=== PATIENT | male | born 1940 | race Caucasian/White ===

== ENCOUNTER 2024-01-27 10:35 | Outpatient (CLI) | payer MEDICARE, SELFPAY ==
--- NOTE | 2024-01-27 11:08 | ECG_ITS ---
SEE SCANNED COPY FOR CONFIRMED REPORT MTDD
[2024-01-27 11:29] LABS: Appearance Urine Clear (Clear); Bilirubin Urine Negative (Negative); Blood Urine Negative (Negative); Color Urine Yellow (Yellow); Glucose Urine UA Negative (Negative); Ketones Urine Negative (Negative); Leukocyte Esterase Ur Negative LEU/UL (Negative); Nitrate Urine Negative (Negative); Protein Urine Negative (Negative); Specific Grav Ur 1.019 (1.001-1.035); pH Urine 6.5 (5.0-9.0)
[2024-01-27 11:30] LABS: Basophils Absolute Auto 0.1 K/mm3 (0.0-0.1); Basophils Percent Auto 0.9 % (0.2-1.2); Eosinophils Absolute Auto 0.1 K/mm3 (0-0.3); Eosinophils Percent Auto 2.1 % (0-4.4); Hemoglobin 13.9 g/dL (14.0-18.0); Immature Granulocyte Absolute 0.01 K/mm3 (0.00-0.031); Immature Granulocyte Percent A 0.1 % (0-0.5); Lymphocytes Absolute Auto 1.19 K/mm3 (0.9-3.2); Lymphocytes Percent Auto 17.6 % (18.3-44.2); Mean Corpuscular HGB Conc 33.1 g/dl (32-36); Mean Corpuscular Hemoglobin 29.7 pg (26-34); Mean Corpuscular Volume 89.7 fl (80-100); Mean Platelet Volume 9.6 fl (7.4-10.4); Monocytes Absolute Auto 0.5 K/mm3 (0.1-0.6); Monocytes Percent Auto 7.7 % (2.6-8.5); Neutrophils Absolute Auto 4.9 K/mm3 (1.3-6.7); Neutrophils Percent Auto 71.6 % (45.5-73.1); Platelet Count Result 182 k/mm3 (150-375); Red Blood Count 4.68 M/mm3 (4.6-6.20); Red Cell Distribution Width 13.8 % (11.5-14.5); White Blood Count 6.8 K/mm3 (4.5-10.0)
[2024-01-27 11:48] LABS: Anion Gap 4 mmol/L (4-12); Blood Urea Nitrogen 17 mg/dL (9-20); Calcium 9.1 mg/dL (8.4-10.2); Carbon Dioxide 31 mmol/L (22-30); Chloride 104 mmol/L (98-107); Estimated Glomerular Filt Rate > 60; Glucose 88 mg/dL (65-110); Potassium 4.2 mmol/L (3.4-5.0); Sodium 139 mmol/L (137-145)
[2024-01-27 12:07] LABS: Add Urine Microscopic? NO
== END 2024-01-27 10:36 | disposition home or self-care (01) ==
PROVIDERS: PCP Internal Medicine; Visit Provider Nurse Practitioner Family
DX: M16.12 Unilateral primary osteoarthritis, left hip (principal); R53.83 Other fatigue; I10 Essential (primary) hypertension; R94.31 Abnormal electrocardiogram [ECG] [EKG]
CPT/HCPCS: 36415; 80048; 81003; 85025; 93005

== ENCOUNTER 2024-02-14 13:31 | Outpatient (CLI) | payer MEDICARE, SELFPAY ==
[2024-02-14 15:40] LABS: INR 1.1; Partial Thromboplastin Time 38.8 Seconds (22.3-36.8); Prothrombin Time 14.7 Seconds (11.1-14.7); Urine Cotinine NEGATIVE
[2024-02-14 15:53] LABS: Albumin Level 4.3 g/dL (3.5-5.1)
[2024-02-14 16:42] LABS: MRSA (PCR) NOT DETECTED (NOT DETECTE)
[2024-02-14 18:57] LABS: Hemoglobin A1C 5.3 % (<5.7)
== END 2024-02-14 13:32 | disposition home or self-care (01) ==
LOC: ANHSURGERY 13:38
PROVIDERS: PCP Internal Medicine; Visit Provider Orthopaedic Surgery
DX: M16.12 Unilateral primary osteoarthritis, left hip (principal); Z01.818 Encounter for other preprocedural examination
CPT/HCPCS: 80307; 82040; 83036; 85610; 85730; 87641

== ENCOUNTER 2024-02-21 07:11 | Outpatient (CLI) | payer MEDICARE, SELFPAY ==
--- NOTE | 2024-02-21 | EST_ITS ---
Patient Info Name: Issac Ricketts Age: 83 years : 1940 Gender: Male Ht: 72 in Wt: 172 lbs BSA: 1.99 m2 HR: 58 bpm BP: 155 / 87 mmHg Heart Rhythm: Sinus Rhythm Exam Date: 02/21/2024 8:15 AM Exam Location: Echo Lab Patient Status: Outpatient Admit Date: 02/21/2024 Staff Ordering Physician: Ezequiel, Girish Guido MD Attending Provider: Ezequiel, Girish Guido MD Exercise Technologist: Romana Zamarripa CT Exercise Physician: Rolando Pérez DO Exam Type: CA stress ofelia w NM Study Info Indications Z01.810 - Encounter for preprocedural cardiovascular examination A regadenoson stress test was performed. Summary 1. 1. Negative lexiscan stress test for ischemic ST changes by ECG criteria. 2. 2. Baseline hypertension. 3. 3. Nuclear scan to follow and will be reported separately. Please correlate with it. 4. 4. Patient informed of the above results. Protocol: Lexiscan Stress ECG Details Stage: REST Duration (min): 1 min : 56 sec HR (bpm): 58 SBP (mmHg): 155 DBP (mmHg): 87 Stage: REST Duration (min): 9 min : 23 sec HR (bpm): 63 SBP (mmHg): 155 DBP (mmHg): 87 Stage: STAGE 1 Duration (min): 0 min : 59 sec HR (bpm): 77 SBP (mmHg): 155 DBP (mmHg): 87 Stage: RECOVERY Duration (min): 1 min : 0 sec HR (bpm): 81 SBP (mmHg): 153 DBP (mmHg): 71 Stage: RECOVERY Duration (min): 2 min : 0 sec HR (bpm): 78 SBP (mmHg): 153 DBP (mmHg): 71 Stage: RECOVERY Duration (min): 3 min : 0 sec HR (bpm): 76 SBP (mmHg): 153 DBP (mmHg): 71 Stage: RECOVERY Duration (min): 3 min : 17 sec HR (bpm): 76 SBP (mmHg): 159 DBP (mmHg): 70 Rest HR: 63 bpm Peak HR: 84 bpm Rest Sys BP: 155 mmHg Peak Sys BP: 159 mmHg Max Pred HR: 139 bpm % Max Pred HR: 60 % Target HR: 118 bpm Max RPP: 13,356 bpm*mmHg Termination Reason: Completed protocol Cardiac Symptoms: Lightheadedness Total Time: 1 min : 0 sec Rest Gruber BP: 87 mmHg Peak Gruber BP: 70 mmHg Total Dose: 0.4 mg Resting ECG Sinus rhythm with supraventricular bigeminy. Stress ECG No ST changes. Arrhythmias None. Report Signatures
--- NOTE | ~2024-02-21 | NM_ITS ---
EXAMINATION: NM ofelia stress w perfusion DATE: 02/21/2024 09:10 INDICATION: Preoperative cardiac evaluation with known chronic artery atherosclerosis.. TECHNIQUE: Rest images were obtained following intravenous administration of 10.9 mCi Tc99m tetrofosm in (Myoview). The patient was infused intravenously with Lexiscan (Regadenoson). Then, 34.0 mCi Tc99m tetrofosmin (Myoview) was administered intravenously, and stress images were obtained. Data was piotr nstructed into short axis and horizontal and vertical long axis SPECT images. Gated SPECT images were also obtained. COMPARISON: None. FINDINGS: There is no definite reversible or fixed perfusion abnormality to suggest ischemia or infar ction. There is normal left ventricular chamber size, wall motion and ejection fraction. Left ventr icular ejection fraction measures 63%. IMPRESSION: 1. Normal myocardial perfusion during stress. 2. Left ventricular ejection fraction measuring 63%. Reviewed, dictated and finalized at location A.
== END 2024-02-21 07:12 | disposition home or self-care (01) ==
PROVIDERS: PCP Internal Medicine; Visit Provider Internal Medicine
DX: Z01.89 Encounter for other specified special examinations (principal); Z01.810 Encounter for preprocedural cardiovascular examination
CPT/HCPCS: 78452; 93017; A9502; J2785

== ENCOUNTER 2024-02-28 02:57 | Day surgery (SDC) | payer MEDICARE, SELFPAY ==
[2024-02-14 13:55] VITALS: BP 152/67; PULSE 60; RESP 16; TEMP 37.2; O2SAT 98; BMI 24.5
--- NOTE | 2024-02-14 14:17 | PC.NURSE ---
Report to the Outpatient Waiting Room, entrance under the green pavilion located off [facility], at time __8:30AM on date ___02/28/24____. Planned Procedure Time: _10:30AM . Time changes happen often and if your time is changed the preop area will call you the afternoon before. - You and your visitor will be asked to self-screen and do not enter if you have any COVID symptoms. - A mask is optional within the hospital at this time. Patients may have clear liquids (water, carbonated beverages, clear teas, apple juice) until 3 hours prior to surgery with a maximum of 20 ounces. - No food from midnight until time of surgery. Take the following medications with a SIP of water the morning of surgery: NONE DO NOT STOP ANY OF YOUR OTHER PRESCRIPTION MEDICATIONS PRIOR TO SURGERY ?EXCEPT THE FOLLOWING Medications to discontinue per physician ___HOLD MELOXICAM, IBUPROFEN, ASPIRIN AND ALL VITAMINS/SUPPLEMENTS 7 DAYS PRE-OP PER DR GÓMEZ Date to take last dose____02/20/24 Please no make-up, nail namibian, hairspray, perfume, deodorant, or body powder the day of surgery. No jewelry (including any body piercings) or valuables the day of surgery, leave them at home. Please take a shower or bath the night before, or the morning of, surgery with an antibacterial soap. Wear comfortable, loose fitting clothing. - Jewelry must be removed prior to entering the operating room. Rings and piercings that are not removed may be cut off. - The hospital will not accept responsibility for valuables. - Please leave all valuables, including medications, at home the day of surgery. If you are going home after surgery, a licensed bobtail driver must drive you home. - NO public transportation without another adult if you receive anesthesia. - We recommend that an adult stay with you for 24 hours following discharge. - We also recommend that you do not drive, make important decision, drink alcoholic beverages, or take any drugs that were not prescribed by your health care provider for at least 24 hours after your discharge time. Follow any additional instructions given to you from your surgeon. If you or anyone in your household have experienced Covid symptoms in the past week, please notify your surgeon or the nurse liaison at the phone number below for possible testing. Telephone instructions given to ____PATIENT and asked if any additional questions and then verbalized understanding. Patient advised to call surgeon office or pre surgery nurse liaison [phone] if any additional questions.
[2024-02-28] VITALS (10 sets, daily range): BP systolic 103–127; BP diastolic 44–54; PULSE 62–74; RESP 13–20; TEMP 36.1–36.5; O2SAT 99–100
--- NOTE | ~2024-02-28 | XR_ITS ---
EXAMINATION: XR hip LT min 2V DATE: 02/28/2024 13:59 INDICATION: Total left hip arthroplasty. Postop. TECHNIQUE: 2 views of left hip were obtained. COMPARISON: Left hip radiograph 01/27/2024 FINDINGS: There is a total left hip arthroplasty in near-anatomic alignment. No fracture. There is ga s in the soft tissues, consistent with recent surgery. IMPRESSION: 1. Total left hip arthroplasty in near-anatomic alignment. Reviewed, dictated and finalized at location A.
--- NOTE | 2024-02-28 07:12 | WPDHPUPDATE1 ---
History and Physical Update Update Date/Time: 02/28/24 07:12 History and Physical has been reviewed, including an updated exam of the patient. There are NO changes in the patient's condition. Risks, benefits, and alternatives have been discussed and questions answered. Patient agrees to proceed with procedure.
[2024-02-28] MEDS: ACETAMINOPHEN 500 MG TABLET 1000 MG PO (08:45)
[2024-02-28] MEDS: TRANEXAMIC ACID 1,000MG/ISO100 1,000 MG/100 ML BAG 200 MG IVPB (08:50)
[2024-02-28] MEDS: LACTATED RINGERS 1,000 ML 30 ML IV CONT ×2 (08:50→13:46)
[2024-02-28] MEDS: ceFAZolin 2 GM/D5W 50 ML 2 GM/50 ML BAG IVPB ×2 (11:00→17:59)
--- NOTE | 2024-02-28 11:02 | P.PNAN_ITS ---
Anes - Initial Pre Proc Eval Procedure: Operation Date: 02/28/24 10:30 Proposed Procedures p Left Total Hip Arthroplasty - Eric Medrano MD Date/Time: 02/28/24 11:02 Surgeon: Eric Medrano MD Pre Op Diagnosis: Lt Hip DJD Patient Data Age: 83 Gender: M Height: 1.8 m Weight: 77.7 kg Last Vital Signs Temp 37.2 C 02/14/24 13:55 Pulse 60 02/14/24 13:55 Resp 16 02/14/24 13:55 BP 152/67 H 02/14/24 13:55 Pulse Ox 98 02/14/24 13:55 O2 Del Method Room Air 02/14/24 13:55 Allergies Allergy/AdvReac Type Severity Reaction Status Date / Time No Known Allergies Allergy Mild Verified 02/28/24 09:17 Home Medications Medication Instructions Recorded Confirmed Type aspirin 81 mg capsule 81 mg PO DAILY 01/27/24 02/28/24 History meloxicam 7.5 mg tablet 7.5 mg PO QAM 01/27/24 02/28/24 History acetaminophen 500 mg capsule 500 mg PO Q6H PRN Pain 02/14/24 02/27/24 History cholecalciferol (vitamin D3) 50 50 mcg PO DAILY 02/14/24 02/28/24 History mcg (2,000 unit) capsule ibuprofen 200 mg capsule 200 mg PO HS PRN Pain 02/14/24 02/28/24 History multivitamin 1 tablet PO DAILY 02/14/24 02/28/24 History omega-3s 300 fg-iwk-pub-other 1 cap PO DAILY 02/14/24 02/28/24 History xutot6q-[id number] oil 1,000 mg capsule ([place]-3 Fish Oil) Laboratory Tests 02/28/24 08:47 Blood Type A Positive Antibody Screen Negative Patient hx anesthesia problems: none Family hx anesthesia problems: none Results Review: All pre-operative results and documents have been reviewed as part of the pre- operative evaluation. [facility]LY [facility] Surgical History Surgical History History of appendectomy History of carpal tunnel release Bilateral wrists- 2016 Hx of hernia repair Social History Social History Social History: caffeine use Smoking status: Never smoker Alcohol intake: current Alcohol use details: 2/month Living arrangements: with family Additional living arrangements comments: S.O. Occupation/Education: retired Gender identity (if verbalized by the patient): Male Spiritual care concerns: No Anes - Eval Final PreProcedure Day of Procedure 02/28/24 11:02 Patient weight: normal Heart: regular rate and rhythm Lungs: clear to auscultation Airway: Mallampati scale class II Neurological: alert and oriented Last oral intake: >/= 8 hours ASA classification: II Emergent: no Anesthetic plan: proceed Anesthesia type and monitoring: general ETT and standard monitoring Results Review: All pre-operative results and documents have been reviewed as part of the pre- operative evaluation. Informed Consent: The patient's anesthetic plan and its attendant risks and benefits were discussed with the patient/family/POA. Questions were solicited and answers provided to the satisfaction of the patient/family/POA.
[2024-02-28] MEDS: SODIUM CHLORIDE 0.9% IV 37.7 ML, MORPHINE SULFATE INJ (*CRX) 2 MG, ROPivacaine HCL 1% 2... INFILTRATE (11:45)
[2024-02-28] MEDS: TRANEXAMIC ACID 1,000 MG/10 ML AMPUL 1000 MG IV PUSH (11:51)
--- NOTE | 2024-02-28 13:49 | W.PM.PROC2 ---
Procedure Note - Detailed Date of Procedure 02/28/24 Pre-op Diagnosis Lt Hip DJD Post-op Diagnosis Same Procedure Performed L [facility] Surgeon Eric Medrano MD Anesthesia General Description of Procedure THE PATIENT WAS TAKEN TO THE OPERATING ROOM IN STABLE CONDITION AND WAS PLACED IN THE LATERAL DECUBITUS AND THE LEFT LOWER EXTREMITY WAS PREPPED AND DRAPED IN THE STERILE FASHION. INCISION WAS MADE IN THE POSTERIOR LATERAL SIDE OF THE HIP, DOWN TO THE FASCIA LAYER. THE FASCIA WAS INCISED. THE HIP WAS EXPOSED. THE SHORT EXTERNAL ROTATORS WERE EXPOSED. THE SCIATIC NERVE WAS IDENTIFIED. INCISION WAS MADE THROUGH THE SHORT EXTERNAL ROTATORS AND THE CAPSULE OF THE HIP JOINT. THE HIP WAS DISLOCATED. AN OSTEOTOMY WAS MADE TO THE FEMORAL NECK ABOUT 1 CM PROXIMAL TO THE LESSER TROCHANTER. THE ACETABULUM WAS EXPOSED. THERE WAS SEVERE DJD SEEN. BEGINNING WITH A 44 REAMER THE ACETABULUM WAS REAMED TO 53 MM. A 53 MM TRIAL WAS PLACED IN 35 DEG OF ABDUCTION AND ANTEVERSION WAS IN ALIGNMENT WITH THE TRANS ACETABULAR LIGAMENT. THE FIT WAS EXCELLENT. THE TRIAL WAS REMOVED. A 54 MM BIOMET G7 COMPONENT WAS THEN TAPPED IN TO PLACE IN 35 DEG OF ABDUCTION AND ANTEVERSION IN ALIGNMENT WITH THE TRANSVERSE ACETABULAR LIGAMENT. THE FIT WAS EXCELLENT. THE ACETABULAR LINER WAS PLACED AND CHECKED FOR STABILITY. NEXT THE FEMUR WAS PREPARED WITH INITIAL CANAL FINDER THEN SEQUENTIAL BROACHING WITH A TAPERLOC HIP SYSTEM, UNTIL A 14 BROACH FIT WELL IN 15 OF ANTEVERSION. A +6 HIGH OFFSET NECK WITH 36 MM HEAD TRIAL WAS PLACED. THE SHUCK TEST WAS EXCELLENT AND THE STABILITY IN FLEXION AND ROTATION WAS EXCELLENT. LEG LENGTHS WERE GROSSLY EQUAL. TRIALS WERE REMOVED. A BIOMET TAPERLOC 9 STEM WAS PLACED WITH A HIGH OFFSET NECK THE FIT WAS EXCELLENT IN 15 DEG OF ANTEVERSION. A +6 CERAMIC 36 MM FEMORAL CERAMIC HEAD WAS PLACED. THE HIP WAS TRIALED AND THE STABILITY WAS EXCELLENT WERE THE LEG LENGTHS AND THE SHUCK TEST. THE WOUND WAS IRRIGATED WITH STERILE BETADINE AND WATER FOR 3 MIN. THEN WASHED AGAIN. THE CAPSULE AND THE EXTERNAL ROTATORS WERE APPROXIMATED WITH NUMBER 1 VICRYL. THE FASCIA WITH No 2 QUIL AND THE SUB CUTANEOUS LAYER WITH 2-0 ABSORBABLE SUTURE WITH A RUNNING 3-0 SUBCUTICULAR LAYER WELL. DERMABOND WAS PLACED AND STERILE DRESSING WAS APPLIED. PATIENT WAS PLACED BACK ON TO THE SUPINE POSITION AND WAS EXTUBATED Estimated Blood Loss 100 Complications No immediate complications Condition Stable Disposition PACU
[2024-02-28] MEDS: SODIUM CHLORIDE 0.9% IV 1,000 ML 125 ML IV CONT (15:53)
[2024-02-28] MEDS: ONDANSETRON INJ 4 MG/2 ML VIAL IV PUSH (15:53)
--- NOTE | 2024-02-28 16:02 | ADMGEN ---
This patient, Issac Ricketts, was admitted to 3 [facility] Surg Room 314-02. Patient/family oriented to hospital policies and general routines including ID bracelet, bed and alarms, visiting hours, pain management, procedures, bathroom and other care routines, personal items, smoking policy, room service/diet, and visiting hours. Information on how to activate the Rapid Response Team has been discussed. Patient/Family are encouraged to report perceived risks to care and to ask questions if they do not understand what they are told or what they should do. Report from Cathy in PACU
[2024-02-28] MEDS: SENNA/DOCUSATE SODIUM TABLET 2 TAB PO (16:56)
[2024-02-28] MEDS: ACETAMINOPHEN 500 MG TABLET PO (16:59)
[2024-02-28] MEDS: FAMOTIDINE 20 MG TABLET PO (20:41)
[2024-02-29] MEDS: ONDANSETRON INJ 4 MG/2 ML VIAL IV PUSH (00:34)
[2024-02-29] MEDS: SODIUM CHLORIDE 0.9% IV 1,000 ML 125 ML IV CONT (00:34)
[2024-02-29] MEDS: ceFAZolin 2 GM/D5W 50 ML 2 GM/50 ML BAG IVPB ×2 (03:15→10:45)
[2024-02-29 03:27] VITALS: BP 130/58; PULSE 69; RESP 18; TEMP 36.5; O2SAT 100
[2024-02-29 05:23] LABS: Basophils Percent Auto 0.4 % (0.2-1.2); Hematocrit 29.7 % (42.0-52.0); Hemoglobin 9.9 g/dL (14.0-18.0); Immature Granulocyte Absolute 0.04 K/mm3 (0.00-0.031); Immature Granulocyte Percent A 0.4 % (0-0.5); Lymphocytes Absolute Auto 0.83 K/mm3 (0.9-3.2); Lymphocytes Percent Auto 8.1 % (18.3-44.2); Mean Corpuscular HGB Conc 33.3 g/dl (32-36); Mean Corpuscular Hemoglobin 29.8 pg (26-34); Mean Corpuscular Volume 89.5 fl (80-100); Mean Platelet Volume 9.9 fl (7.4-10.4); Monocytes Absolute Auto 0.9 K/mm3 (0.1-0.6); Monocytes Percent Auto 8.3 % (2.6-8.5); Neutrophils Absolute Auto 8.5 K/mm3 (1.3-6.7); Neutrophils Percent Auto 82.8 % (45.5-73.1); Platelet Count Result 123 k/mm3 (150-375); Red Blood Count 3.32 M/mm3 (4.6-6.20); Red Cell Distribution Width 13.5 % (11.5-14.5); White Blood Count 10.3 K/mm3 (4.5-10.0)
[2024-02-29 05:37] LABS: Anion Gap 4 mmol/L (4-12); Blood Urea Nitrogen 15 mg/dL (9-20); Calcium 7.9 mg/dL (8.4-10.2); Carbon Dioxide 27 mmol/L (22-30); Chloride 104 mmol/L (98-107); Estimated CRCL calculation 67 ml/min; Estimated Glomerular Filt Rate > 60; Glucose 133 mg/dL (65-110); Potassium 3.9 mmol/L (3.4-5.0); Sodium 135 mmol/L (137-145)
[2024-02-29 07:27] VITALS: BP 112/47; PULSE 63; RESP 18; TEMP 36.1; O2SAT 100
[2024-02-29 08:00] VITALS: O2SAT 100
[2024-02-29] MEDS: SENNA/DOCUSATE SODIUM TABLET 2 TAB PO (08:42)
[2024-02-29] MEDS: FAMOTIDINE 20 MG TABLET PO (08:42)
[2024-02-29] MEDS: MULTIVITAMINS THERAPEUTIC TAB (*BKC) 1 TABLET PO (08:42)
[2024-02-29] MEDS: polyethylene glycoL 3350 17 GM POWD.PACK PO (08:42)
[2024-02-29] MEDS: CHOLECALCIFEROL 1,000 UNITS TABLET 2000 UNITS PO (08:42)
[2024-02-29] MEDS: ASPIRIN 81 MG ENTERIC TABLET PO (08:42)
--- NOTE | 2024-02-29 11:05 | PM.PNORT ---
Progress Note: A&P Assessment and Plan (1) Degenerative joint disease of left hip: Qualifiers: Osteoarthritis type: primary Qualified Code(s): M16.12 - Unilateral primary osteoarthritis, left hip Code(s): M16.12 - Unilateral primary osteoarthritis, left hip Status: Acute Assessment and Plan: POD 1 DOING WELL WITH GOOD PROGRESS WITH PT. OK TO DC HOME F/U IN 3 WEEKS Subjective Subjective Date/Time Seen: 02/29/24 11:05 Interval history: POD 1 DOING WELL. NO CALF PAIN Exam Extrem: Other: VSS AFEBRILE DRESSING DRY NV INTACT NEG HOMANS SIGN CALF AND THIGH SOFT NON TENDER Objective Data Vital Signs Vital Signs: Vital Signs - 24 hr 02/28/24 13:46 02/28/24 14:00 02/28/24 14:15 Temperature 36.1 C L Pulse Rate 73 67 65 Respiratory Rate 13 14 18 Blood Pressure 122/49 L 110/50 L 112/53 L Pulse Oximetry 100 100 100 Oxygen Delivery Simple Face Mask Room Air Room Air Oxygen Flow Rate 8 02/28/24 14:30 02/28/24 14:45 02/28/24 15:15 Temperature 36.2 C L 36.3 C L Pulse Rate 71 63 65 Respiratory Rate 20 15 16 Blood Pressure 103/49 L 108/44 L 118/54 L Pulse Oximetry 100 99 99 Oxygen Delivery Room Air Room Air Oxygen Flow Rate 02/28/24 15:30 02/28/24 20:00 02/28/24 19:27 Temperature 36.3 C L 36.1 C L Pulse Rate 62 74 Respiratory Rate 16 20 Blood Pressure 124/52 L 119/54 L Pulse Oximetry 100 100 99 Oxygen Delivery Room Air Oxygen Flow Rate 02/28/24 23:27 02/29/24 03:27 02/29/24 07:27 Temperature 36.5 C 36.5 C 36.1 C L Pulse Rate 65 69 63 Respiratory Rate 18 18 18 Blood Pressure 127/53 L 130/58 L 112/47 L Pulse Oximetry 100 100 100 Oxygen Delivery Oxygen Flow Rate 02/29/24 08:36 02/29/24 08:00 Temperature Pulse Rate Respiratory Rate Blood Pressure Pulse Oximetry 100 Oxygen Delivery Room Air Room Air Oxygen Flow Rate Intake/Output Intake/Output: Intake & Output 06/23/24 06/24/24 06/25/24 06/26/24 23:59 23:59 23:59 23:59 Intake Total 1450 1290 Balance 1450 1290 Meds/Results Medications: Active Medications Generic Name Dose Route Start Last Admin Trade Name Javier PRN Reason Stop Dose Admin Acetaminophen 500 mg 02/28/24 13:44 02/28/24 16:59 Acetaminophen 500 Mg Tablet PO 500 mg Q6H PRN Administration Pain 1-3 Aspirin 81 mg 02/29/24 09:00 02/29/24 08:42 Aspirin 81 Mg Enteric Tablet PO 81 mg QAM ANANYA Administration Diazepam 5 mg 02/28/24 13:45 Diazepam (*Crx) 5 Mg Tablet PO Q6H PRN Anxiety/Muscle Spasm Diphenhydramine HCl 25 mg 02/28/24 13:45 Diphenhydramine Hcl Inj 50 Mg/Ml Vial IV PUSH Q6H PRN Itching Famotidine 20 mg 02/28/24 21:00 02/29/24 08:42 Famotidine 20 Mg Tablet PO 20 mg Q12HR ANANYA Administration Fentanyl Citrate 25 mcg 02/28/24 11:10 Fentanyl Citrate Inj (*Crx) 100 Mcg/2 Ml Vial IV PUSH Q2M PRN Pain Hydromorphone HCl 1 mg 02/28/24 13:42 Hydromorphone Hcl Inj (*Crx) 1 Mg/Ml Syr IV PUSH Q2H PRN Breakthrough Pain Rated 7-10 or NPO Hydromorphone HCl 0.5 mg 02/28/24 13:42 Hydromorphone Hcl Inj (*Crx) 1 Mg/Ml Syr IV PUSH Q2H PRN Breakthrough Pain Rated 4-6 or NPO Cefazolin Sodium 2 gm in 50 mls @ 100 mls/hr 02/28/24 19:00 02/29/24 10:45 Ancef 2 Gm/D5w 50 Ml IVPB 02/29/24 11:29 100 mls/hr Q8H ANANYA Administration Ibuprofen 800 mg in 200 mls @ 400 mls/hr 02/28/24 13:42 Caldolor 800 Mg/200 Ml IVPB Q6H PRN Breakthrough Pain Rated 1-3 or NPO Multivitamins Therapeutic 1 tablet 02/29/24 09:00 02/29/24 08:42 Multivitamins Therapeutic Tab (*Bkc) PO 1 tablet DAILY ANANYA Administration Naloxone HCl 0.1 mg 02/28/24 13:42 Naloxone Hcl 0.4 Mg/Ml Vial IV PUSH Q2M PRN Opiate Reversal Ondansetron HCl 4 mg 02/28/24 11:10 Ondansetron Inj 4 Mg/2 Ml Vial IV PUSH ONCE PRN Nausea Ondansetron HCl 4 mg 02/28/24 13:42 02/29/24 00
--- NOTE | 2024-02-29 11:07 | PM.DS ---
DS: Admitting Diagnosis Discharge Date 02/29/24 Admitting Diagnosis LEFT HIP DJD DS: Discharge Diagnosis Discharge Diagnosis (1) Degenerative joint disease of left hip: Qualifiers: Osteoarthritis type: primary Qualified Code(s): M16.12 - Unilateral primary osteoarthritis, left hip Code(s): M16.12 - Unilateral primary osteoarthritis, left hip Status: Acute DS: Summary Hospital Course Reason for hospitalization: LEFT KELSEA Hospital Course: PATIENT WAS ADMITTED S/P TOTAL HIP ARTHROPLASTY FOR POSTOPERATIVE MEDICAL MANAGEMENT, PAIN CONTROL AND MOBILIZATION WITH PHYSICAL AND OCCUPATIONAL THERAPY. THE PATIENT PROGRESSED WELL WITH PT/OT. LABS AND VITALS REMAINED STABLE AND PAIN WELL CONTROLLED. THE PATIENT HAS BEEN CLEARED TO BE DISCHARGED HOME. FOLLOW UP APPOINTMENT SCHEDULED. DISCHARGE INSTRUCTIONS DISCUSSED AT LENGTH WITH THE PATIENT. MEDICATIONS REVIEWED. Time Spent with Patient Time attestation: Total time spent providing and/or coordinating discharge services: DS: Data Data Completed and Pending Labs on day of discharge: Labs from last 24 hours 02/29/24 04:24 WBC 10.3 H RBC 3.32 L Hgb 9.9 L D Hct 29.7 L MCV 89.5 MCH 29.8 MCHC 33.3 RDW 13.5 Plt Count 123 L MPV 9.9 Immature Gran % (Auto) 0.4 Neut % (Auto) 82.8 H Lymph % (Auto) 8.1 L Cache % (Auto) 8.3 Eos % (Auto) 0.0 Baso % (Auto) 0.4 Lymph # (Auto) 0.83 L Cache # (Auto) 0.9 H Eos # (Auto) 0.0 Baso # (Auto) 0.0 Abs Immat Gran (auto) 0.04 H Absolute Neuts (auto) 8.5 H Absolute Nucleated RBC 0.000 Nucleated RBC % 0.0 Sodium 135 L Potassium 3.9 Chloride 104 Carbon Dioxide 27 Anion Gap 4 BUN 15 Creatinine 0.80 Estim Creat Clear Calc 67 Estimated GFR > 60 Glucose 133 H Calcium 7.9 L Procedures/Treatments: LEFT [place]EL[place] Discharge Plan Discharge Patient Disposition: Home Health Service Discharge Instructions: Post Op Total Hip Replacement Instructions Dr. Eric Medrano [phone] Your dressing will be changed prior to your discharge. You will be sent home with one additional dressing to be changed on post op day 7 by the home health RN. You may remove the dressing on post op day 14. Your incision was closed with dermabond, allow the dermabond to fall off naturally once your dressing is removed. Do not pull at the dermabond or disrupt incision healing. You may shower with your dressing but do not submerge in a bath tub. Do not drive or operate machinery until you are released by Dr. Medrano. Do not walk without a walker for any reason until you are released by Dr. Medrano. Continue to apply ice to the hip intermittently for additional pain relief. Protect your skin with a towel or pillow case. Continue to follow strict total hip replacement precautions. Your first post op appointment was sent to you via mail preoperatively. If you have any questions or are unable to make your appointment, please contact our office for scheduling questions. Your medications have been sent to your pharmacy. You have been sent home with pain medication. Please quill picking machine operator an over the counter stool softener to prevent constipation due to narcotic use. Please keep this in mind during your postoperative recovery. If you are not experiencing regular bowel movements, please contact our office for further instructions. Please contact our office with any questions/concerns regarding your hip at [phone]. Patient Instructions: Antibiotic Form Stand Alone Forms: General Discharge Information Follow-up/Referrals: Eric Medrano MD [Physician] - Keep Reg. Scheduled Appt. Discharge Medications: New hydrocodone-acetaminophen 5-325 mg tablet 1 tablet PO Q6H PRN (Reason: pain) Qty: 30 0RF Continued aspirin 81 mg capsule 81 mg PO DAILY multivitamin Tablet 1 tablet PO DAILY ibuprofen 200 mg Capsule 200 mg PO HS PRN (Reason: Pain) cholecalciferol (vitamin D3) 50 mcg (2,000 un
[2024-02-29 11:27] VITALS: BP 119/97; PULSE 66; RESP 18; TEMP 36.1; O2SAT 99
--- NOTE | 2024-02-29 14:47 | WPDANESPN ---
Anes - Prog Note Post-Op Date/Time: 02/29/24 14:47 Cardiovascular status: normal Respiratory status: normal Airway patency: baseline Mental status: baseline Post-Op hydration status: normal Vital Signs: Last Vital Signs Temp 36.1 C L 02/29/24 11:27 Pulse 66 02/29/24 11:27 Resp 18 02/29/24 11:27 BP 119/97 H 02/29/24 11:27 Pulse Ox 99 02/29/24 11:27 O2 Del Method Room Air 02/29/24 08:36 O2 Flow Rate 8 02/28/24 13:46 Pain Score (VAS): 10/15 I/O: Intake & Output 02/28/24 02/29/24 02/29/24 23:59 07:59 15:59 Intake Total 1050 50 1480 Balance 1050 50 1480 Laboratory Tests 02/29/24 04:24 02/29/24 04:24 02/29/24 04:24 WBC 10.3 H RBC 3.32 L Hgb 9.9 L D Hct 29.7 L MCV 89.5 MCH 29.8 MCHC 33.3 RDW 13.5 Plt Count 123 L MPV 9.9 Immature Gran % (Auto) 0.4 Neut % (Auto) 82.8 H Lymph % (Auto) 8.1 L Wilkinson % (Auto) 8.3 Eos % (Auto) 0.0 Baso % (Auto) 0.4 Lymph # (Auto) 0.83 L Wilkinson # (Auto) 0.9 H Eos # (Auto) 0.0 Baso # (Auto) 0.0 Abs Immat Gran (auto) 0.04 H Absolute Neuts (auto) 8.5 H Absolute Nucleated RBC 0.000 Nucleated RBC % 0.0 Sodium 135 L Potassium 3.9 Chloride 104 Carbon Dioxide 27 Anion Gap 4 BUN 15 Creatinine 0.80 Estim Creat Clear Calc 67 Estimated GFR > 60 Glucose 133 H Calcium 7.9 L Post-procedural complaints: none Patient Feedback: Patient satisfied with anesthetic care.
== END 2024-02-29 16:04 | disposition home health service (06) ==
LOC: ANHSURGERY 08:05 → ANH3MEDSUR 14:58
PROVIDERS: PCP Internal Medicine; Visit Provider Orthopaedic Surgery
PROC: (CPT 27130; principal; 2024-02-28 10:30)
DX: M16.12 Unilateral primary osteoarthritis, left hip (principal); Z79.51 Long term (current) use of inhaled steroids; Z79.1 Long term (current) use of non-steroidal anti-inflammatories (NSAID); Z98.890 Other specified postprocedural states
CPT/HCPCS: 27130; 36415; 73502; 78452; 80048; 80307; 82040; 83036; 85025; 85610; 85730; 86850; 86900; 86901; 87641; 93017; 97110; 97116; 97161; 97165; 97530; 97535; A9270; A9502; C1776; J0171; J0690; J1100; J1170; J1885; J2270; J2405; J2704; J2785; J2795; J3010; J7030; J7120

== ENCOUNTER 2024-04-20 08:58 | Outpatient (CLI) | payer MEDICARE, SELFPAY ==
--- NOTE | ~2024-04-20 | XR_ITS ---
XR ankle LT min 3V Ordering provider: Genie Dickerson, TECHNICAL MARKETING CONSULTANT History: . Pain in left ankle and joints of left foot . Comparison: None. FINDINGS: BONES: No acute fracture or dislocation. Calcaneus spur. JOINT SPACES: The ankle mortise is normal. SOFT TISSUES: Soft tissue swelling over the lateral malleolus. IMPRESSION: No acute osseous abnormality left ankle. Reviewed, dictated and finalized at location A.
== END 2024-04-20 08:59 | disposition home or self-care (01) ==
LOC: ANHIMG 09:01
PROVIDERS: PCP Internal Medicine; Visit Provider Nurse Practitioner Adult Health
DX: M25.572 Pain in left ankle and joints of left foot (principal)
CPT/HCPCS: 73610

== ENCOUNTER 2024-05-02 12:23 | Outpatient (CLI) | payer MEDICARE, SELFPAY ==
--- NOTE | ~2024-05-02 | US_ITS ---
EXAMINATION:US venous doppler LE BI INDICATION:Calf pain TECHNIQUE: Multiple grayscale, color flow and Doppler images of the right and left lower extremity de ep venous systems were obtained and reviewed. COMPARISON:No prior studies for comparison. FINDINGS: The common femoral, superficial femoral and popliteal veins demonstrate normal respiratory variation, augmentation and compressibility. Color flow is also seen within the posterior tibial, pe roneal, greater saphenous and profunda veins. IMPRESSION: 1: No lower extremity deep venous thrombosis. Reviewed, dictated and finalized at location B.
== END 2024-05-02 12:24 | disposition home or self-care (01) ==
LOC: ANHIMG 12:24
PROVIDERS: PCP Internal Medicine; Visit Provider Nurse Practitioner Adult Health
DX: M25.572 Pain in left ankle and joints of left foot (principal); M79.89 Other specified soft tissue disorders
CPT/HCPCS: 93970